=== PATIENT | female | born 1980 | race Caucasian/White ===

== ENCOUNTER → 2017-05-05 | Outpatient (CLI) | payer MEDICAID ==
[~2017-05-05] MED LIST: DIAZEPAM5 MG PO; GABAPENTIN 400400 MG PO; HYDROCODONE-APA1 TA2 PO; HYDROCODONE/ACE1 TA5 PO; SYMBICORT1 AE1 IH
[2017-05-05 16:31] LABS: AMPHETAMINES/METAMPHETAMINES NEGATIVE ng/mL (<1000)
== END ==
LOC: LAB 15:20
PROVIDERS: Nurse Practitioner Family
DX: Z79.899 Other long term (current) drug therapy (principal)